=== PATIENT | male | born 1935 | race Asian ===

== ENCOUNTER 2019-08-07 18:40 | Emergency (ER) | payer OTHER ==
[~2019-08-07] VITALS: Ht 160 cm; Wt 53.1 kg
[2019-08-07 18:48] VITALS: BP 178/75
[2019-08-07 19:07] LABS: Basophils # (auto) 0 uL; Basophils % (auto) 0.7 % (0.0-2.0); Eosinophils # (auto) 0.4 uL; Eosinophils % (auto) 6.4 % (0.0-7.0); Hemoglobin 11.8 g/dL (13.5-17.5); Lymphocytes # (auto) 2.1 uL; Mean Corpuscular Hgb Conc. 32.9 g/dL (32.0-36.0); Mean Corpuscular Volume 97.3 fL (80.0-100.0); Monocytes # (auto) 0.5 uL; Monocytes % (auto) 8.7 % (0.0-12.0); Neutrophils # (auto) 2.9 uL; Neutrophils % (auto) 49.2 % (37.0-80.0); Nucleated Red Blood Cells % 0.1 %; Platelet Count (auto) 160 10^3/uL (140-450); Red Cell Distribution Width 12.9 % (11.8-14.3); White Blood Cell 5.9 10^3/uL (4.4-10.8)
[2019-08-07 19:26] LABS: Albumin 3.5 g/dL (3.4-5.0); Anion Gap 8 (5-15); Blood Urea Nitrogen 29 mg/dL (7-18); Calcium 8.4 mg/dL (8.5-10.1); Carbon Dioxide 26 mmol/L (21-32); Chloride 104 mmol/L (98-107); Glucose 130 mg/dL (74-106); Magnesium 2.3 mg/dL (1.6-2.6); Potassium 3.6 mmol/L (3.5-5.1); Sodium 138 mmol/L (136-145)
[2019-08-07 19:31] LABS: Alanine Aminotransferase 25 U/L (16-61); Alkaline Phosphatase 66 U/L (45-117); Aspartate Aminotransferase 32 U/L (15-37); BUN/Creatinine Ratio 19.1; Bilirubin, Total 0.3 mg/dL (0.2-1.0); GFR African American 57 mL/min; GFR Non-African American 47 mL/min; Total Protein 7.5 g/dL (6.4-8.2)
== END 2019-08-07 21:01 | disposition home or self-care (01) ==
LOC: ER 18:40
DX: R42 Dizziness and giddiness (principal); R11.10 Vomiting, unspecified; E78.5 Hyperlipidemia, unspecified
CPT/HCPCS: 36415; 70450; 80053; 83735; 84484; 85025; 93005

== ENCOUNTER 2022-07-30 10:07 | Emergency (ER) | payer OTHER ==
[~2022-07-30] VITALS: Ht 160 cm; Wt 52.3 kg
[2022-07-30 11:40] VITALS: BP 140/72
[2022-07-30] MEDS ORDERED: MELO7.5T9 PO (12:12)
== END 2022-07-30 12:20 | disposition home or self-care (01) ==
LOC: ER 10:09
DX: M50.30 Other cervical disc degeneration, unspecified cervical region (principal); M47.812 Spondylosis without myelopathy or radiculopathy, cervical region; E78.5 Hyperlipidemia, unspecified; Z79.899 Other long term (current) drug therapy
CPT/HCPCS: 72040